=== PATIENT | female | born 1965 | race African-American/Black ===

== ENCOUNTER 2019-01-08 21:21 | Emergency (ER) | payer OTHER ==
[~2019-01-08] VITALS: Ht 172.7 cm; Wt 99.8 kg
--- NOTE | 2019-01-08 21:50 | NUR ---
ED Nurse Note: Pt arrived ED from home. c/o right lower leg pain 03/05 which had a healing wound caused by felling one month ago. Pt is A/O X4. Vital signs stable at this time, waiting for orders.
--- NOTE | 2019-01-08 22:21 | Emergency Room Report ---
History of Present Illness General Chief Complaint: Lower Extremity Injury Source: Patient Present Illness HPI Is a 53-year-old female with no past medical history. She presents with chief complaint of right ankle pain. She fell in her basement in November and sustained abrasion and laceration to the ankle area. She's been covering it up. Few days ago it drained some clear liquid. Patient denies any fever chills. Now throbbing aching pain. Thornton weak. No fever chills but no nausea no vomiting. Denies any other complaint. Allergies: Coded Allergies: No Known Allergies (Unverified , 01/08/19) Patient History Past Medical History: see triage record, old chart reviewed Past Surgical History: other Pertinent Family History: none Social History: Denies: smoking Last Menstrual Period: n/a Now: No Immunizations: other Reviewed Nursing Documentation: PMH: Agreed; PSxH: Agreed Nursing Documentation-PM Past Medical History: No Stated History Review of Systems Eye: Denies: eye pain, blurred vision ENT: Denies: ear pain, nose congestion, throat swelling Respiratory: Denies: cough, shortness of breath Cardiovascular: Denies: chest pain, palpitations Gastrointestinal: Denies: abdominal pain, diarrhea, nausea, vomiting Musculoskeletal: Reports: joint pain; Denies: back pain Skin: Denies: rash Neurological: Denies: headache, numbness Endocrine: Denies: increased thirst, increased urine Hematologic/Lymphatic: Denies: easy bruising All Other Systems: negative except mentioned in HPI Physical Exam Vital Signs Date Time Temp Pulse Resp B/P (MAP) Pulse Ox O2 Delivery O2 Flow Rate FiO2 01/08/19 21:36 98.1 82 18 98 Room Air vitals hypertension Sp02 EP Interpretation: reviewed, normal General Appearance: well appearing, no apparent distress, alert Head: normocephalic, atraumatic Eyes: bilateral eye PERRL, bilateral eye EOMI ENT: hearing grossly normal, normal pharynx Neck: full range of motion, supple, no meningismus Respiratory: chest non-tender, lungs clear, normal breath sounds Cardiovascular #1: regular rate, rhythm, no murmur Gastrointestinal: normal bowel sounds, non tender, no mass, no organomegaly, no bruit, non-distended Musculoskeletal: back normal, gait/station normal, normal range of motion, tender - medial aspect the right aspect of right ankle. Psychiatric: mood/affect normal Skin: warm/dry Medical Decision Making Diagnostic Impression: Primary Impression: Abrasion, right ankle, initial encounter ER Course Patient presents with right ankle pain. She has an abrasion that was draining. I see no evidence of any draining here. Because of her pain, we'll put on antibiotics. Notice any fracture or deep infection. Other X-Ray Diagnostic Results Other X-Ray Diagnostic Results : X-Ray ordered: x-rays right ankle # of Views/Limited Vs Complete: 3 View Indication: Pain EP Interpretation: Yes Interpretation: no dislocation, no soft tissue swelling, no fractures, other - degenerative changes Impression: No acute disease Electronically Signed by: Yoni Pérez MD Last Vital Signs Date Time Temp Pulse Resp B/P (MAP) Pulse Ox O2 Delivery O2 Flow Rate FiO2 01/08/19 21:36 98.1 82 18 98 Room Air Status: improved Disposition: HOME, SELF-CARE Condition: Stable Scripts Ibuprofen* (MOTRIN*) 600 Mg Tablet 600 MG ORAL THREE TIMES A DAY, #30 TAB 0 Refills Prov: Yoni Pérez MD 01/08/19 Doxycycline Monohydrate* (DOXYCYCLINE MONOHYDRATE*) 100 Mg Capsule 100 MG ORAL Q12H, #14 CAP 0 Refills Prov: Yoni Pérez MD 01/08/19 Referrals: [facility],REFERRING (PCP) Patient Instructions: Ankle Sprain Additional Instructions: Elevate leg. Follow-up with your doctor in 7 days. Return if worse. Yoni Pérez MD January 08, 2019 22:21
[2019-01-08] MEDS ORDERED: Bacitracin Oint UD TOPIC ONE (23:15)
[2019-01-08] MEDS ORDERED: IBUPROFEN600 MG ORAL (23:30)
[2019-01-08] MEDS ORDERED: DOXYCYCLINE MO100 MG ORAL (23:30)
[2019-01-08 23:35] VITALS: BP 148/91
--- NOTE | 2019-01-08 23:35 | NUR ---
ER DISCHARGE NOTE: Patient is cleared to be discharged per Dr. Pérez. Meds given, dressing applied. Pt is ao x4 on room air with stable vital signs. Pt was given dc and prescription instructions and was able to verbalize understanding. Pt's ID band removed. Pt is able to ambulate with steady gait and took all belongings.
--- NOTE | 2019-01-09 11:09 | Diagnostic Imaging Report ---
Indication: Pain right ankle ankle pain/trauma Comparison: None Findings: 3 views of the right ankle obtained. No acute fracture, malalignment, periostitis, or osteochondral defects are identified. Soft tissues are unremarkable. Osteophytes noted in the midfoot. Mild soft tissue swelling is present. Impression: No acute fracture. Soft tissue swelling noted. Midfoot arthrosis
== END 2019-01-08 23:35 | disposition home or self-care (01) ==
LOC: EMR 22:11
DX: S90.511A Abrasion, right ankle, initial encounter (principal); X58.XXXA Exposure to other specified factors, initial encounter; Y92.9 Unspecified place or not applicable
CPT/HCPCS: 99283